=== PATIENT | female | born 1965 | race African-American/Black ===

== ENCOUNTER 2020-06-23 13:59 | Outpatient (CLI) | payer BC ==
--- NOTE | 2020-06-23 14:49 | ULT ---
ABDOMINAL ULTRASOUND: 06/23/20 INDICATIONS: Abdominal pain. FINDINGS: Gallbladder has a normal sonographic appearance. No evidence of gallstones. Common bile duct normal caliber. Visualized aorta and IVC appear normal. Pancreas is mostly obscured but unremarkable as visualized. Liver and spleen unremarkable. Both kidneys are imaged and appear unremarkable. IMPRESSION: Unremarkable abdominal ultrasound. POS: OFF
== END 2020-06-23 14:00 | disposition home or self-care (01) ==
LOC: BICULT 13:59
PROVIDERS: ATTEND Internal Medicine Gastroenterology
DX: R10.9 Unspecified abdominal pain (principal)
CPT/HCPCS: 93975